=== PATIENT | female | born 1975 | race Caucasian/White ===

== ENCOUNTER 2018-05-30 14:40 | Outpatient (CLI) | payer OTHER | END 2018-05-30 14:41 | disposition home or self-care (01) | LOC: SC 14:40 | PROVIDERS: ATTEND Nurse Practitioner Family | DX: G47.33 Obstructive sleep apnea (adult) (pediatric) (principal); R00.2 Palpitations; R06.00 Dyspnea, unspecified | CPT/HCPCS: 99212; 99214 ==

== ENCOUNTER 2018-07-19 20:34 | Outpatient (CLI) | payer OTHER | END 2018-07-19 20:35 | disposition home or self-care (01) | LOC: SC 20:34 | PROVIDERS: ATTEND Internal Medicine Pulmonary Disease | DX: G47.61 Periodic limb movement disorder (principal) | CPT/HCPCS: 95810 ==

== ENCOUNTER 2018-08-20 14:08 | Outpatient (CLI) | payer OTHER | END 2018-08-20 14:09 | disposition home or self-care (01) | LOC: SC 14:08 | PROVIDERS: ATTEND Nurse Practitioner Family | DX: G47.61 Periodic limb movement disorder (principal); R06.83 Snoring | CPT/HCPCS: 99212; 99214 ==